=== PATIENT | male | born 1960 | race Caucasian/White ===

== ENCOUNTER → 2017-08-30 | Outpatient (CLI) | payer BC ==
[~2017-08-30] MED LIST: ALBUTEROL SULFATE 0.083% NEB 2.5 MG/3 ML AMPUL NEB ONE
--- NOTE | 2017-08-31 09:06 | PULMONARY FUNCTION TEST ---
DATE OF SERVICE: 08/30/2017 THE VITAL CAPACITY IS NORMAL. THE EXPIRATORY FLOW RATES ARE SLIGHTLY DECREASED. THE FEV1/VC IS 58%, PREDICTED: 80% LUNG VOLUMES BY NITROGEN WASH OUT METHOD SHOW: TLC IS 96% OF PREDICTED FRC IS 103% OF PREDICTED RV IS 57% OF PREDICTED THE DLCO IS 5.7, 24% OF PREDICTED. THE RV/TLC RATIO IS 21% PREDICTED 37% AFTER BRONCHODILATOR, EXPIRATORY FLOW RATES SHOW NO SIGNIFICANT CHANGE. IMPRESSION: GOOD PATIENT EFFORT. SLIGHT OBSTRUCTIVE DEFECT. LUNG VOLUMES ARE NORMAL. DIFFUSING CAPACITY IS SEVERELY DECREASED. CC: SHELDON VILCHIS MD > [facility]
== END ==
LOC: RT 09:06
PROVIDERS: ATTEND Internal Medicine Pulmonary Disease
DX: J44.9 Chronic obstructive pulmonary disease, unspecified (principal)
CPT/HCPCS: 94060; 94727; 94729